=== PATIENT | female | born 1945 | race Caucasian/White ===

== ENCOUNTER 2023-11-14 14:21 | Emergency (ER) | payer MEDICARE ==
[~2023-11-14] VITALS: Ht 162.6 cm; Wt 70.5 kg
[2023-11-14 15:57] VITALS: BP 156/77; TEMP 97; O2SAT 98
== END 2023-11-14 15:57 | disposition home or self-care (01) ==
LOC: M ED 14:21
DX: H11.32 Conjunctival hemorrhage, left eye (principal); I10 Essential (primary) hypertension; E11.9 Type 2 diabetes mellitus without complications